=== PATIENT | male | born 2000 | race Caucasian/White ===

== ENCOUNTER → 2025-06-25 | Outpatient (CLI) | payer SELFPAY ==
--- NOTE | 2025-06-25 11:45 | RAD_ITS ---
PROCEDURE: L/S SPINE MIN 4 VIEWS 06/25/2025 REASON FOR EXAM: LOW BACK PAIN TECHNIQUE: Procedure Code: RADSPLS Modality: DX Procedure: L/S SPINE MIN 4 VIEWS COMPARISON: None. FINDINGS: BONES: Five [id number] lumbar vertebral bodies. No fracture or focal osseous lesion. Anatomic spinal alignment. DISC/DEGENERATIVE CHANGES: Disc spaces are preserved. SOFT TISSUES: Moderate colonic stool. RAD/L/S Spine Min 4 Views IMPRESSION: No lumbar spine abnormality seen. Reading Location: [id number]
== END | disposition home or self-care (01) ==
PROVIDERS: Referring Provider Chiropractor Orthopedic; Visit Provider Chiropractor Orthopedic
DX: M99.03 Segmental and somatic dysfunction of lumbar region (principal); M54.50 Low back pain, unspecified
CPT/HCPCS: 72110